=== PATIENT | male | born 1970 | race Caucasian/White ===

== ENCOUNTER → 2018-05-25 | Day surgery (SDC) | payer BC ==
[~2018-05-25] MED LIST: FENTANYL CITRATE/PF 100MCG/2 ML INJ ONE; LABETALOL HCL 20 ML ONE; MIDAZOLAM HCL 2 MG/2 ML VIAL ONE; PROPOFOL IV EMULSION 10 MG/ML 50 ML VIAL ONE; SOLODYN80 MG PO
[2018-05-25 14:20] VITALS: BP 154/87
--- NOTE | 2018-05-25 14:36 | Operative Report ---
DATE OF PROCEDURE: May 25, 2018 REFERRING PHYSICIAN: Dr. Chris Maya PROCEDURE PERFORMED: Colonoscopy. INDICATIONS FOR COLONOSCOPY: Colorectal cancer screening. Mother with colon cancer. MEDICATION: Patient was done under MAC. Please see anesthesiologist's note. PROCEDURE: With the patient in the left lateral decubitus position, the flexible fiberoptic Olympus colonoscope was inserted into the rectum with ease and advanced all the way to the cecum. It was then withdrawn slowly. Mucosa overlying the cecum, ascending colon, transverse colon, and descending colon appeared to be within normal limits. Diverticular disease was noted to involve the sigmoid colon. The rectum grossly appeared to be within normal limits. The scope was then retroflexed into the distal rectum, and small internal hemorrhoids were noted, none of which was actively bleeding. The scope was then straightened out. It was subsequently withdrawn. Patient tolerated the procedure well. IMPRESSION 1. Diverticulosis. 2. Internal hemorrhoids, none actively bleeding. PLAN: Initiate high-fiber, low-fat diet. Initiate high-fiber supplement. Patient might benefit from a followup colonoscopy in 5 years. Job#: [id number] cc:CHRIS MAYA MD
== END | disposition home or self-care (01) ==
LOC: OR 10:52
PROVIDERS: ATTEND Internal Medicine Gastroenterology
DX: Z12.11 Encounter for screening for malignant neoplasm of colon (principal); K57.30 Diverticulosis of large intestine without perforation or abscess without bleeding; K64.8 Other hemorrhoids; Z01.810 Encounter for preprocedural cardiovascular examination; Z80.0 Family history of malignant neoplasm of digestive organs
CPT/HCPCS: 45378; 93005; J2250; J3490

== ENCOUNTER → 2020-11-16 | Day surgery (SDC) | payer BC ==
[~2020-11-16] MED LIST changes: +AMLODIPINE BESYL5 MG PO; +BENICAR20 MG PO; +HYOSCYAMINE SULFATE 0.5 MG/ML INJ ONE; -LABETALOL HCL 20 ML ONE; +LIDOCAINE HCL 2% LOCAL INJ 5 ML SDV VIAL INJ ONE; +PHENYLEPHRINE HCL 1% 10 MG/ML VIAL ONE; +PRESTIQ PO; -PROPOFOL IV EMULSION 10 MG/ML 50 ML VIAL ONE; +ZYRTEC-D TABLE1 EACH PO
[2020-11-16 17:15] VITALS: BP 100/76
== END | disposition home or self-care (01) ==
LOC: OR 12:06
PROVIDERS: ATTEND Internal Medicine Gastroenterology
DX: Z12.11 Encounter for screening for malignant neoplasm of colon (principal); K63.5 Polyp of colon; K57.30 Diverticulosis of large intestine without perforation or abscess without bleeding; K64.8 Other hemorrhoids; I10 Essential (primary) hypertension; F32.9 Major depressive disorder, single episode, unspecified; Z01.810 Encounter for preprocedural cardiovascular examination; Z01.812 Encounter for preprocedural laboratory examination; Z20.822 Contact with and (suspected) exposure to COVID-19; Z68.36 Body mass index [BMI] 36.0-36.9, adult; Z80.0 Family history of malignant neoplasm of digestive organs
CPT/HCPCS: 45385; 93005; J1980; J2001; J2250; J2370; J3010; U0002; 45380

== ENCOUNTER → 2024-05-13 | Day surgery (SDC) | payer BC ==
[2024-05-10 12:50] LABS: BASOPHILS # (AUTO) 0.1 (0.0-0.1); BASOPHILS % 0.9 % (0.0-1.0); EOSINOPHILS # (AUTO) 0.1 (0.0-0.4); HEMOGLOBIN 13.2 g/dL (14.0-18.0); LYMPHOCYTES # (AUTO) 2.4 (1.0-3.2); LYMPHOCYTES % 34.2 % (18.0-39.1); MEAN CORPUSCULAR HEMOGLOBIN 30.5 pg (28-32); MEAN CORPUSCULAR HGB CONC 32.2 g/dL (31-35); MEAN CORPUSCULAR VOLUME 94.7 fL (81-99); MONOCYTES # (AUTO) 0.4 (0.2-0.8); MONOCYTES % 6.2 % (4.4-11.3); NEUTROPHILS % 57.3 % (38.7-80.0); PLATELET COUNT 218 x10e3/uL (140-360); RED BLOOD COUNT 4.33 x10e6/uL (4.3-5.7); RED CELL DISTRIBUTION WIDTH 13.1 % (11.7-14.4); WHITE BLOOD COUNT 6.92 x10e3/uL (4.8-10.8)
[2024-05-10 13:16] LABS: ALBUMIN 4.1 g/dL (3.5-5.0); ALBUMIN/GLOBULIN RATIO 1.2 (0.8-2.0); ANION GAP 15.4 mmol/L (8-16); BILIRUBIN,TOTAL 0.4 mg/dL (0.2-1.2); CALCIUM 9.5 mg/dL (8.4-10.2); CREATININE, SERUM 0.85 mg/dL (0.72-1.25); POTASSIUM 4.4 mmol/L (3.5-5.1); TOTAL PROTEIN 7.4 g/dL (6.5-8.1)
[~2024-05-13] MED LIST changes: +ACETAMINOPHEN 1000 MG/100 ML 100 ML IV ONE; +B-121000 MC2; +BUPIVACAINE 0.25% 30ML SDV ONE; +CEFTRIAXONE 1 GM VIAL ONE; +DEXAMETHASONE SOD PHOS INJ 4 MG/ML SDV ONE; +GLYCOPYRROLATE INJ 0.2 MG/ML VIAL ONE; -HYOSCYAMINE SULFATE 0.5 MG/ML INJ ONE; +KETOROLAC TROMETHAMINE 30 MG/ML VIAL ONE; +LIDOCAINE 1% W/EPINEPHRINE 20 ML VIAL ONE; -MIDAZOLAM HCL 2 MG/2 ML VIAL ONE; +NEOSTIGMINE 1 MG/ML 10ML VIAL ONE; +ONDANSETRON HCL INJ 2MG/ML 2ML 2 MG/ML VIAL ONE; -PHENYLEPHRINE HCL 1% 10 MG/ML VIAL ONE; +PROPOFOL IV EMULSION 10 MG/ML 20 ML VIAL ONE; +ROSUVASTATIN CA20 MG PO; +ZYRTEC10 M3
[2024-05-13] MEDS: LACTATED RINGER'S 1,000 ML ONE (08:13)
[2024-05-13] MEDS: FENTANYL CITRATE/PF 100MCG/2 ML INJ ONE (11:58)
[2024-05-13] MEDS: HYDROCODONE/APAP 7.5MG-325MG 1 EA TAB ONE (12:44)
[2024-05-13 12:50] VITALS: BP 115/70; PULSE 71; RESP 18; O2SAT 100
== END | disposition home or self-care (01) ==
LOC: OR 07:26
PROVIDERS: ATTEND Surgery
DX: L05.91 Pilonidal cyst without abscess (principal); D64.9 Anemia, unspecified; I10 Essential (primary) hypertension; E78.5 Hyperlipidemia, unspecified; Z01.810 Encounter for preprocedural cardiovascular examination; Z01.812 Encounter for preprocedural laboratory examination; Z79.899 Other long term (current) drug therapy
CPT/HCPCS: 11772; 36415; 80053; 85025; 88304; 93005; J0131; J0690; J1100; J1885; J2003; J2405; J2704; J2710; J3010; J7121; J0696